=== PATIENT | male | born 2000 | race Caucasian/White ===

== ENCOUNTER 2018-10-27 12:28 | Emergency (ER) | payer OTHER ==
[~2018-10-27] VITALS: Ht 167.6 cm; Wt 75.6 kg
[2018-10-27] MEDS: NS 1,000 ML IV SCH ×3 (12:50→15:33)
[2018-10-27 13:15] LABS: BASO # 0.1 10^3/uL (0.0-0.2); BASO % 0.7 % (0.0-1.0); EOS # 0.3 10^3/uL (0.0-0.50); EOS % 2.6 % (0.0-3.0); HEMATOCRIT 45.1 % (42.0-52.0); HEMOGLOBIN 15.3 g/dl (13.5-17.5); LYMPH # 1.7 10^3/uL (1.5-6.5); LYMPH % 13.7 % (24.0-44.0); MEAN CORPUSCULAR HEMOGLOBIN 29.5 pg (27.0-33.0); MEAN CORPUSCULAR HGB CONC 33.9 g/dl (32.0-36.5); MEAN CORPUSCULAR VOLUME 86.9 fl (80.0-96.0); MONO # 1.1 10^3/uL (0.0-0.8); MONO % 8.8 % (0.0-5.0); NEUTROPHILS % 73.9 % (36.0-66.0); PLATELET COUNT, AUTOMATED 255 10^3/uL (150-450); RED BLOOD COUNT 5.19 10^6/uL (4.30-6.10); WHITE BLOOD COUNT 12.1 10^3/uL (4.0-10.0)
[2018-10-27 13:42] LABS: ALBUMIN 3.9 GM/DL (3.2-5.2); ALT/SGPT 23 U/L (12-78); BILIRUBIN,DIRECT 0.1 MG/DL (0.0-0.2); BILIRUBIN,TOTAL 0.8 MG/DL (0.2-1.0); BLOOD UREA NITROGEN 17 MG/DL (7-18); CARBON DIOXIDE LEVEL 28 MEQ/L (21-32); CHLORIDE LEVEL 104 MEQ/L (98-107); CREATININE FOR GFR 1.31 MG/DL (0.70-1.30); GLUCOSE, FASTING 84 MG/DL (70-100); LIPASE 101 U/L (73-393); POTASSIUM SERUM 3.9 MEQ/L (3.5-5.1); SODIUM LEVEL 138 MEQ/L (136-145); TOTAL PROTEIN 8.2 GM/DL (6.4-8.2)
[2018-10-27] MEDS ORDERED: KETOROLAC 30 MG/ML VIAL (J1885) IV ONE (13:45)
[2018-10-27] MEDS ORDERED: GASTROGRAFIN SOLUTION 30ML (Q9963) As Ordered ONE (13:54)
[2018-10-27] MEDS: GASTROGRAFIN SOLUTION 30ML PO SCH ×2 (14:12→14:44)
[2018-10-27 14:35] LABS: MONO SCRN NEGATIVE (NEGATIVE)
[2018-10-27 15:55] VITALS: BP 110/59
[2018-10-27] MEDS ORDERED: FLOM0.4C39 PO (16:25)
[2018-10-27] MEDS ORDERED: KETO10TAB PO (16:25)
--- NOTE | 2018-10-28 07:30 | REP ---
CT ABDOMEN AND PELVIS WITH CONTRAST: HISTORY: Bilateral upper quadrant pain. CONTRAST: Isovue 370, 100 mL. Calcification is present in the left kidney consistent with nephrolithiasis. There is no hydronephrosis. The liver, gallbladder, pancreas, spleen, adrenal glands, and right kidney are normal in appearance. There is no mass, adenopathy or free fluid. The visualized lungs are clear. The prostate gland and urinary bladder are normal in appearance. There is no fracture or subluxation. IMPRESSION: Left nephrolithiasis. Electronically Signed by Juan Cali MD 10/28/2018 07:58 A
== END 2018-10-27 16:55 | disposition home or self-care (01) ==
LOC: M ED 12:28
DX: N20.0 Calculus of kidney (principal)
CPT/HCPCS: 74177; 80048; 80076; 81001; 83690; 85025; 86308; 96374; 99284; J1885